=== PATIENT | male | born 1975 | race African-American/Black ===

== ENCOUNTER 2019-04-16 20:49 | Inpatient (IN) | payer OTHER, MEDICAID ==
[~2019-04-16] VITALS: Ht 175.3 cm; Wt 118.5 kg
--- NOTE | 2019-04-16 21:18 | NUR ---
UPON ENTERING THE ROOM PT OXYGEN SATURATION IS AT 88% RA EVEN AFTER REQUESTING PT TO TAKE SEVERAL DEEP BREATHES. PT DOES NOT HAVE INCREASED WOB HOEVER O2 SAT IS STILL LOW. PT PLACED ON 4L NC AT THIS TIME. AWAITING MSE
--- NOTE | 2019-04-16 21:33 | NUR ---
SING AT BEDSIDE PT CONNECTED TO 3 DIFFERENT PULSE OX MACHINES. IN ROOM MONITOR SAYS 86% EVEN ON 4 L NC. TWO PORTABLE MONITORS SAY DIFFERENT THINGS. ONE STATES 87% AND OTHER STATES 93%. ON 4L NC. SING AWARE. AWAITING NEW ORDERS AT THIS TIME
--- NOTE | 2019-04-16 21:38 | NUR ---
SING AWARE OF O2 SATURATION. MD STATES TO LEAVE PT ON 4L NC AND WATCH HIM. PT HAS NO S/SX OF SOB OR RESP DISTRESS. PT SITTING UP AWAKE ALERT. RESP E/U. PT LOOKING AND WATCHING TV. CAREGIVER AT BEDSIDDE. WILL CONTINUE TO MONITOR.
--- NOTE | 2019-04-16 21:49 | NUR ---
CALLED X RAY FOR STAT CHEST X RAY. X RAY NOW AT BEDSIDE
--- NOTE | 2019-04-16 21:51 | NUR ---
PT PRESENTS TO ED WITH CAREGIVER FOR C/O AND EPISODE OF BECOMING DIAPHOREC AND HAVING CHEST PAIN EARLIER TODAY. PER CAREGIVER PT BECAME VERY SWEATY AND GRABBED HIS CHEST. PT IS DEVELOPMENTALLY DELAYED WELL DEF SO CAREGIVER AT BEDSIDE FOR INTERPRETATION. PT HAS E/U CHEST RISE. PT IS CALM AND COOPERATIVE. PT STATES "MY CHEST DOESNT HURT WHEN I BREATHE BUT IT FEELS FUNNY" PER CAREGIVER. PT IS NO LONGER DIAPHORETIC. PT SKIN WNL. PT CONNECTED TO FULL CM AND PULSE OX MONIOTRS. MD GEORGE HAS ALREADY PERFORMED MSE. BED IN LOWEST POSITION. PT CONNECTED TO O2. SIDE RAILS UP. CALL LIGHT WITHIN REACH. CAREGIVER AT BEDSIDE. NAD AT THIS TIME. AWAITING TEST RESULTS FOR FURTHER INFORMATION
--- NOTE | 2019-04-16 21:52 | NUR ---
REDNESS NOTED TO BL EYES. PER CAREGIVER THAT IS NORMAL FOR PT.
--- NOTE | 2019-04-16 22:05 | NUR ---
PT ABLE TO SHOW ME FRAN ON PHONE FOR SIGN LANGUAGE INTERPRETATION. PT ABLE TO ANSWER YES AND NO QUESTIONS WITH HEAD MOTION. PER CONTROL OPERATOR FLOW COAT PT WAS ABLE TO EXPRESS NEEDS EARLIER TODAY PT ALSO WENT TO LIGHT WORK AT THE HOME HE LIVES IN WITH NO PROBLEMS. CAREGIVER STATES HIS NEW PCP HAS BEEN CHANGING HIS BP MEDS AROUND A LOT AND INCREASING DOSES AND HAS PT ON MULTIPLE DIFFERENT MEDICATONS FOR BP. PT ABLE TO AMBULATE TO RESTROOM WITH STEADY GAIT FOR URINE SAMPLE. LUNG SOUNDS CLEAR IN ALL LIRA. NAD AT THIS TIME
[2019-04-16 22:20] LABS: CALCIUM 8.6 mg/dL (8.5-10.1); CARBON DIOXIDE 37.5 mmol/L (21-32); CHLORIDE SERUM 102 mmol/L (98-107); CREATININE SERUM 0.9 mg/dL (0.7-1.3); GFR1 > 60 mL/min; GLUCOSE SERUM 139 mg/dL (74-106); POTASSIUM SERUM 3.7 mmol/L (3.5-5.1); SODIUM SERUM 144 mmol/L (136-145)
[2019-04-16 22:25] LABS: ALKALINE PHOSPHATASE 73 U/L (46-116); ALT/SGPT 17 U/L (16-63); AST/SGOT 16 U/L (15-37); BILIRUBIN TOTAL 0.37 mg/dL (0.20-1.00); MAGNESIUM 2.2 mg/dL (1.8-2.4); TOTAL PROTEIN, SERUM 7.8 g/dL (6.4-8.2)
[2019-04-16 22:28] LABS: ALBUMIN 3.2 g/dL (3.4-5.0)
[2019-04-16 22:33] LABS: T3 TOTAL 1.01 ng/mL
[2019-04-16 22:42] LABS: AMPHETAMINE QUAL UR NONE DETECTED (See below)
[2019-04-16 22:44] LABS: FREE T4 0.77 ng/dL (0.76-1.46); FREE THYROXINE INDEX 2.2 ug/dL (1.4-4.5); T4(THYROXINE) 5.9 ug/dL (4.7-13.3)
--- NOTE | 2019-04-16 22:54 | NUR ---
SING AWARE OF PT CURRENT HR AND OXYGEN SATURATION. NO NEW ORDERS AT THIS TIME
[2019-04-16 23:00] LABS: BASOPHIL % 0.9 % (0-2)
[2019-04-16 23:02] LABS: PLATELET COUNT 90 x10^3mcL (130-400); RED CELL DISTRIBUTION WIDTH 22.2 % (11.5-14.5)
[2019-04-17] VITALS (17 sets, daily range): BP systolic 99–157; BP diastolic 42–124
--- NOTE | 2019-04-17 00:40 | NUR ---
MD GEORGE AND RT AT BEDSIDE FOR INTUBATION
--- NOTE | 2019-04-17 00:45 | NUR ---
4MG VERSED GIVEN R HAND IV PUSH FOR INTUBATION
--- NOTE | 2019-04-17 00:50 | NUR ---
15MG ETOMIDATE GIVEN IVP IN R HAND FOR RSI
--- NOTE | 2019-04-17 00:52 | NUR ---
BL SOFT WRIST RESTRAINTS APPLIED TO PT WRISTS FOR INTUBATION
--- NOTE | 2019-04-17 00:56 | NUR ---
X RAY AT BEDSIDE FOR INTUBATION CONFIRMATION
--- NOTE | 2019-04-17 01:08 | NUR ---
MD GEORGE CONFIRMED INTUBATION TUBE PLACEMENT
[2019-04-17] MEDS ORDERED: KAPSPARGO SPRI200 MG PO (02:08)
[2019-04-17] MEDS ORDERED: NOR10 PO (02:08)
[2019-04-17] MEDS ORDERED: BENAZEPRIL HYDR40 M1 PO (02:09)
[2019-04-17] MEDS ORDERED: CHLORTHALIDONE25 MG PO (02:09)
[2019-04-17] MEDS ORDERED: BENZTROPINE MESY1 MG PO (02:10)
[2019-04-17] MEDS ORDERED: HALOPERIDOL10 MG IM (02:10)
--- NOTE | 2019-04-17 02:10 | NUR ---
PATIENT INTUBATED @0051 BY WITH NUCLEAR OPERATIONS SPECIALIST, JACEK AND KAMARI. TWO ATTEMPTS MADE TO INTUBATE, SECOND ATTEMPT SUCCESSFUL WITH GOOD COLOR CHANGE FROM CAPNOMETER AND BILATERAL BREATH SOUNDS HEARD, MORE AUDIBLE ON THE RIGHT SIDE. CUFF INFLATED TO 30 CM H2O. ET TUBE SIZE 8.0 SECURED WITH AN ANCHORFAST AT 26 CM AT THE LIP. REVIEWED XRAY AND CONFIRMED GOOD TUBE PLACEMENT. PATIENT PLACED ONTO VENTILATOR @0107 WITH SETTINGS AC/VC 550 RATE 18 PEEP 5 FIO2 100%.
[2019-04-17] MEDS ORDERED: DIVALPROEX SOD500 M2 PO (02:11)
[2019-04-17] MEDS ORDERED: SEROQUEL300 MG PO (02:11)
--- NOTE | 2019-04-17 02:11 | NUR ---
DECREASED FIO2 FROM 100% TO 60% POST ABG RESULTS AND PER DR. BLACKWELL.
[2019-04-17] MEDS ORDERED: SEROQUEL100 MG PO (02:12)
--- NOTE | 2019-04-17 02:17 | NUR ---
MD CARR CONFIRMED OG TUBE PLACEMENT AT THIS TIME
--- NOTE | 2019-04-17 02:18 | NUR ---
PT PROPOFOL INCREASED TO 15MCG/KL/MIN AT 9.9ML /HR FOR PT TRYING TO SIT UP AND PULL ON ARMS WHILE SUCTIONING PT.
--- NOTE | 2019-04-17 02:34 | NUR ---
REPORT GIVEN TO DANIEL SWIFT. ALL QUESTIONS AND CONCERNS ADRESSED AT THIS TIME
--- NOTE | 2019-04-17 02:50 | NUR ---
TRANSFERED PATIENT FROM ER TO ICU 4 ON VENTILATOR WITH NO INCIDENT.
--- NOTE | 2019-04-17 02:55 | NUR ---
PT TRANSFERRED FROM ER VIA GURNEY ACCOMPANIED BY RN AND EMT. PT TRANSFERRED TO ICU BED WITH FULL ASSIST. PT INTUBATED AND SEDATED ON PROPOFOL 18 MCG/KG/MIN WITH RSS 4. PERRLA NOTED. 8.0 ETT INTACT AND SECURED, 26 CM @ LL. TRACHEA MIDLINE. NO JVD NOTED. OGT INTACT AND SECURED. EENT FREE OF DISCHARGE. PLACED ON FULL CM, VITAL SIGNS STABLE. PT AFEBRILE. ETT TO VENT: AC MODE RATE 18, TV 550, PEEP 5, FIO2 100%. CHEST RISE EQUAL AND SYMMETRICAL. LUNG SOUNDS COARSE CRACKLES SAM. VAP CARE PROVIDED. ABD DISTENDED AND SOFT TO TOUCH. BOWEL SOUNDS HYPOACTIVE. NO BM NOTED. F/C INTACT AND DRAINING VIA GRAVITY YELLOW URINE. NO SCROTAL EDEMA. NO PENILE DISCHARGE NOTED. PULSES PALPABLE X4. CAP REFILL < 3 SECS. NO EDEMA NOTED. GEN WEAKNESS NOTED. TURNED AND REPOSITIONED Q2H FOR PRESSURE RELIEF. BUE SOFT WRIST RESTRAINTS IN PLACE FOR PT SAFETY. ALL NEEDS MET AT THIS TIME. WILL CONTINUE TO MONITOR.
--- NOTE | 2019-04-17 03:10 | NUR ---
PT RESTLESS, SEEN ATTEMPTING TO SIT UP AND PULL ON TUBE, PROPOFOL TITRATED TO 20 MCG/KG/MIN.
[2019-04-17 03:23] LABS: UA SPECIFIC GRAVITY 1.025 (1.005-1.035); microscopic required? YES; urine erythrocyte NEGATIVE (NEGATIVE)
--- NOTE | 2019-04-17 03:30 | NUR ---
PT AWAKE AND RESTLESS, PROPOFOL TITRATED TO 22 MCG/KG/MIN.
--- NOTE | 2019-04-17 04:00 | NUR ---
PT AWAKE AND RESTLESS, ATTEMPTING TO PULL OUT TUBE, PROPOFOL TITRATED TO 25 MCG/KG/MIN.
[2019-04-17 04:57] LABS: BASOPHIL % 1.9 % (0-2); PLATELET COUNT 185 x10^3mcL (130-400)
[2019-04-17 05:03] LABS: RED CELL DISTRIBUTION WIDTH 22.2 % (11.5-14.5)
--- NOTE | 2019-04-17 05:57 | NUR ---
REPORTED CRITICAL LAB VALUE HGB/HCT TO DR BLACKWELL, STATES WILL ORDER FLUIDS.
--- NOTE | 2019-04-17 06:10 | NUR ---
LAB AT BEDSIDE FOR REPEAT LACTIC ACID.
--- NOTE | 2019-04-17 06:19 | NUR ---
DR OTEROED AT BEDSIDE, UPDATED ON STATUS, ALL QUESTIONS AND CONCERNS ADDRESSED. NO NEW ORDERS GIVEN.
[2019-04-17 07:15] LABS: CALCIUM 8.5 mg/dL (8.5-10.1); CARBON DIOXIDE 34.3 mmol/L (21-32); CHLORIDE SERUM 99 mmol/L (98-107); GFR1 > 60 mL/min; GLUCOSE SERUM 161 mg/dL (74-106); MAGNESIUM 1.8 mg/dL (1.8-2.4); PHOSPHOROUS 1.8 mg/dL (2.5-4.9); POTASSIUM SERUM 3.5 mmol/L (3.5-5.1); SODIUM SERUM 139 mmol/L (136-145)
--- NOTE | 2019-04-17 07:30 | NUR ---
RC'D PT RESTING IN BED INTUBATED AND SEDATED ON PROP @25MCG/KG/MIN. PT RESPONDS TO PAINFUL STIMULI. PUPILS 4MM AND SLUGGISH BILAT. NO FACIAL DROOP. 8 ETT INTACT AND SECURED, 26CM LL. OGT INTACT AND SECURED IN PLACE. EENT FREE OF DISCHARGE. DEAF TO RIGHT EAR, HEARING AID TO LEFT EAR. ETT TO VENT, AC MODE; TV 550, FIO2 60%, RATE 18, PEEP 5. RESP E/U. CRACKLES NOTED BILAT. SPO2 97%, NO RESP DISTRESS NOTED. ST ON SOCIAL WORK FACULTY MEMBER, H1 112. S1S2 AUSC. NO S/S OF CP. WEAK PALP PULSES TO BUE/BLE, EDEMA NTOED TO BLE. CAP REFILL <3. SKIN WARM TO TOUCH AND CONSISTENT WITH ETHNICITY. NS @100. GENERALIZED WEAKNESS. REPOSITION Q2H FOR PRESSURE REDUCTION. BUE SOFT RESTRAINTS IN PLACE, CAP REFILL <3 TO ALL DIGITS. PT NPO AT THIS TIME. ABDOMEN DISTENDED AND FIRM. HYPOACTIVE BS. NO BM NOTED. F/C WITH YELLOW URINE DRAINING TO GRAVITY, SECURED IN PLACE. NO PENILE EDEMA NOTED. SKIN W/D/I. IV TO RH AND LH, INTACT AND PATENT. BED IN LOW POSITION. SCDS IN PLACE. WILL CONT TO MONITOR
[2019-04-17 08:37] LABS: IRON 41 ug/dL (65-170); TOTAL IRON BINDING CAPACITY 395 ug/dL (250-450)
--- NOTE | 2019-04-17 09:17 | NUR ---
DR AKINS AND MED TEAM AND PRIMARY RN PRESENT AT BEDSIDE DISCUSSING POC WITH PTS FAMILY AND CAREGIVEN. UPDATED ON PTS CURRENT STATUS. ALL QUESTIONS AND CONCERNS ADDRESSED. NO NEW ORDERS AT THIS TIME
--- NOTE | 2019-04-17 18:25 | NUR ---
PT CLEANED AND REPOSITIONED. ORAL CARE PROVIDED. KUHN CARE PROVIDED. WILL CONT TO MONITOR
--- NOTE | 2019-04-17 19:15 | NUR ---
RECIEVED REPORT FROM JENIFFER MCCAULEY. NURSING UPDATES. POC DISCUSSED. SEE SHIFT ASSESSMENT FOR ASSESSMENT.
--- NOTE | 2019-04-17 19:28 | NUR ---
PT ENDORSED TO REAL ESTATE CONSULTANT RN. ALL QUESTIONS AND CONCERNS ADDRESSED
--- NOTE | 2019-04-17 22:03 | NUR ---
NO ACUTE CHANGES. WILL CONT TO MONITOR.
--- NOTE | 2019-04-17 23:17 | NUR ---
TITRATED PROPOFOL FROM 40MCG/KG/MIN TO 35MCG/KG/MIN PER PT TOLERATING WELL AND NO S/S OF DISTRESS OR AGITATION. BP WNL. WILL CONT TO MONITOR.
[2019-04-18] VITALS (17 sets, daily range): BP systolic 91–147; BP diastolic 48–110
--- NOTE | 2019-04-18 | NUR ---
ADJUSTED TF FROM 20ML/HR TO 30ML/HR TO TRY AND ACHIEVE GOAL. NO RESIDUAL NOTED. WILL CONT TO MONITOR.
--- NOTE | 2019-04-18 01:18 | NUR ---
NO ACUTE CHANGES. WILL CONT TO MONITOR.
--- NOTE | 2019-04-18 01:46 | NUR ---
MRSA AND INFLUENZE CULTURES SENT TO LAB.
--- NOTE | 2019-04-18 02:32 | NUR ---
TITRATED PROPOFOL FROM 35MCG/KG/MIN TO 30MCG/KG/MIN PER PT TOLERATING WELL AND NO S/S OF DISTRESS OR AGITATION. BP WNL. WILL CONT TO MONITOR.
[2019-04-18 06:37] LABS: CALCIUM 8.4 mg/dL (8.5-10.1); CARBON DIOXIDE 30.2 mmol/L (21-32); CHLORIDE SERUM 105 mmol/L (98-107); GFR1 > 60 mL/min; GLUCOSE SERUM 112 mg/dL (74-106); MAGNESIUM 1.8 mg/dL (1.8-2.4); SODIUM SERUM 144 mmol/L (136-145)
--- NOTE | 2019-04-18 07:45 | NUR ---
RC'D PT RESTING IN BED INTUBATED AND SEDATED ON PROP 40MCG/KG/MIN. PT RESPONDS TO PAINFUL STIMULI. PUPILS 4MM AND SLUGGISH BILAT. NO FACIAL DROOP NOTED. 8 ETT INTACT AND SECURED, 26CM LL. OGT INTACT AND SECURED. ETT TO VENT, PCV MODE- FIO2 60%, RATE 14, PEEP 12, PRESSURE 18. RESP E/U. CRACKLES NOTED. SPO2 93%, NO RESP DISTRESS NOTED. ST ON PARTS DATA WRITER. S1S2 AUSC. NO S/S OF CP. WEAK PALP PULSES TO BUE/BLE, EDEMA NOTED TO BLE. CAP REFILL <3. SKIN WARM TO TOUCH AND CONSISTENT WITH ETHNICITY. NS@100. GENERALIZED WEAKNESS. PT REPOSITIONED Q2H FOR PRESSURE REDUCTION. ABDOMEN DISTENDED AND FIRM. ACTIVE BS. NO RESIDUAL NOTED. F/C WITH YELLOW URINE DRAINING TO GRAVITY, SECURED IN PLACE. SKIN W/D/I. VITAL AF @40 WITH 50 FWF Q6H. BED IN LOW POSITION. WILL CONT TO MONITOR
[2019-04-18 09:07] LABS: BASOPHIL % 0.2 % (0-2); PLATELET COUNT 166 x10^3mcL (130-400)
[2019-04-18 09:24] LABS: RED CELL DISTRIBUTION WIDTH 23.3 % (11.5-14.5)
--- NOTE | 2019-04-18 14:57 | NUR ---
Initial Nutrition Assessment: IC04/A MIKHAIL BASSETT IA HR Dx: Respiratory failure, dehydration PMHx: 43 year old male with a PMH of HTN, mental retardation, psychosis, deafness who comes into the ED for CC palpitation and SOB. PSHx: none Labs: K 3.0L, BG 112H, ALB 3.3L, CA 8.4L, P 2.0L Meds: Colace, Lopressor, Pepcid, Tylenol, valproic acid, zosyn, heparin Diet: (OGT) Vital AF 1.2 @ 10 ml/hr, goal 40 ml/hr, FWF 50 ml Q6H PO intake since admission: NPO Ht: 175.26 cm (69") Wt: 110 kg (242#) BMI: 35.8 kg/m2 Bed scale: 110 kg IBW: 160# (73 kg) %IBW: 151 UBW: unbale to access Age: 43/M Food Allergies: NKFA Skin: intact Parviz: 14 Edema: BUE/ BLE edema GI: Last BM: none Per H&P, Pt is a 43 year old male with a PMH of HTN, mental retardation, psychosis, deafness who comes into the ED for CC palpitation and SOB. RD Note (04/18): Patient is intubated and sedated. Per RN, patient is tolerating tube feedings with <15 ml residuals. Patient does not have any N/V/D/C at this time. Problem with: N/V/D/C: Problems with: Chewing: Swallowing: Current appetite: unbale to access Recent wt change: unbale to access %wt change: n/a Vitamin/Supplement use: unbale to access Special diet at home: unbale to access Physical activity: unbale to access Nutrition education given: not possible at this time Food-drug interactions: none Education given: n/a Estimated Nutritional Needs Based on adjusted body weight (82 kg) Energy: 5950-3964 vs 2260 kcal/day (30-35 kcal/kg vs PSU for catabolic stress) Protein: 98-115 g/day (1.2-1.4 g/kg for catabolic stress, on vent) Fluid: 1500-8258 mL/day (1 mL/kcal) Nutrition Diagnosis: 1. Inadequate enteral nutrition infusion related to low TF rate as evidenced by current rate not meeting estimated calorie and protein needs. Intervention 1. Recommend Vital AF 1.2 @ 65 ml/hr. This will provide 1870 kcal and 117g protein. This will meet > 75% of estimated calorie and 100% estimated protein needs of the patient. Paged Dr. Hendrickson Sayed, waiting for call back. Monitor/Evaluate Goal: PO intake at least 75% of estimated needs Monitor: PO intake, Labs, GI function F/U in 2-3 days as high risk 04/20-
--- NOTE | 2019-04-18 15:05 | NUR ---
PUBLICATIONS MANAGER PRESENT AT BEDSIDE
--- NOTE | 2019-04-18 18:16 | NUR ---
PT RESTING IN BED WITH CAREGIVER PRESENT AT BEDSIDE. RESP E/U. INTUBATED AND SEDATED
--- NOTE | 2019-04-18 18:24 | NUR ---
KUHN CARE AND ORAL CARE PROVIDED. ANDREA CHANGED.
--- NOTE | 2019-04-18 19:30 | NUR ---
PT ENDORSED TO NUTRITIONALIST RN. ALL QUESTIONS AND CONCERNS ADDRESSED
--- NOTE | 2019-04-18 19:44 | NUR ---
RECIEVED REPORT FROM JENIFFER MCCAULEY. NURSING UPDATES. POC DISCUSSED. SEE SHIFT ASSESSMENT FOR ASSESSMENT.
--- NOTE | 2019-04-18 20:00 | NUR ---
NOTIFIED PHARMACY OF SEROQUEL NOT IN PT BOX. PHARAMACY NOTIFED CHANGED TO A ONE TIME ORDER TO PULL FROM [facility]. LIANA SWIFT PULLED 300MG (3 100MG SEROQUEL TABS) FROM [facility]. ADM SEE (*SEE MAR*) 300MG NG TUBE.
--- NOTE | 2019-04-18 20:30 | NUR ---
PT W/ EPISODES OF EMESIS. RT REZA @ BEDSIDE. SUCTION APPLIED. ESTIMATED 50CC ESEMSIS OF LICEA/BROWN FOOD COLOR. O2 SAT 95%. BP WNL. ONLY S/S IS ABD PAIN. TITRATED VERSED FROM 1MG/HR TO 2MG/HR AFTER 15 MINS 4MG/HR. PT STILL AGITATED AND ATTEMPTING TO MOVE AND GET UP. TITRATED VERSED TO 6MG/HR W/ NO AVAIL PT STILL RESISTING. TITRATED VERSED TO 8MG/HR STILL W/ RESISTANCE AFTER 15MINS. TITRATED VERSED TO 10MG/HR Q15MIN PER PT AGITATION. PT FINALLY CALMED DOWN. TUBE FEEDING TITRATED OFF PER EMESIS WILL REASSESS.
--- NOTE | 2019-04-18 21:56 | NUR ---
TITRATED VERSED FROM 10MG/HR TO 8MG/HR PER PT TOLERATING NO S/S OF DISTRESS. WILL CONT TO MONITOR.
--- NOTE | 2019-04-18 22:29 | NUR ---
LAB NOTIFIED OF K-RIDER ORDER W/ NS ADDED POTASSIUM AND WAS WORRIED THAT NO REPEAT LAB DRAW WAS DONE AFTER KRIDER TODAY FOR k+ 3.0 04/[address] RICARDO. INSTRUCTION TO WAIT FOR NEW BNP LAB DRAW HOLD ON NS W/ POTASSIUM AND K-RIDER TILL LAB DRAW RESULTS.
--- NOTE | 2019-04-18 22:30 | NUR ---
TITRATED VERSED FROM 8MG/HR TO 6MG/HR PER PT TOLERATING NO S/S OF DISTRESS. WILL CONT TO MONITOR.
--- NOTE | 2019-04-18 23:07 | NUR ---
TITRATED VERSED FROM 6MG/HR TO 4MG/HR PER PT TOLERATING NO S/S OF DISTRESS. WILL CONT TO MONITOR.
--- NOTE | 2019-04-18 23:08 | NUR ---
TITRATED VERSED FROM 4MG/HR TO 2MG/HR PER PT TOLERATING NO S/S OF DISTRESS. AND PT BP CONSISTENTLY LOW. WILL CONT TO MONITOR.
[2019-04-19] VITALS (18 sets, daily range): BP systolic 97–154; BP diastolic 48–108
[2019-04-19 00:01] LABS: CALCIUM 7.7 mg/dL (8.5-10.1); CARBON DIOXIDE 30.4 mmol/L (21-32); CREATININE SERUM 1.6 mg/dL (0.7-1.3); POTASSIUM SERUM 3.7 mmol/L (3.5-5.1)
--- NOTE | 2019-04-19 02:06 | NUR ---
TITRATED FENT FROM 1MCG/KG/HR TO 0.5MCG/KG/HR PER PT TOLERATING. NO S/S OF PAIN OF RESP DISTRESS REKHA. WILL CONT TO MONITOR.
--- NOTE | 2019-04-19 04:30 | NUR ---
NO ACUTE CHANGES. CLEANED PT AND LINENS. RETITRATED ON TUBE FEEDING @ 40ML/HR NO RESIDUAL. WILL ENDORSE. NO S/S OF ASPIRATION OR EMESIS.
[2019-04-19 06:18] LABS: CALCIUM 7.7 mg/dL (8.5-10.1); CARBON DIOXIDE 32.1 mmol/L (21-32); CREATININE SERUM 1.4 mg/dL (0.7-1.3); MAGNESIUM 1.9 mg/dL (1.8-2.4); PHOSPHOROUS 3.8 mg/dL (2.5-4.9); POTASSIUM SERUM 3.2 mmol/L (3.5-5.1)
--- NOTE | 2019-04-19 06:28 | NUR ---
DR HANNON @ BEDSIDE. NURSING UPDATES POC DISCUSSED. NO NEW ORDERS.
[2019-04-19 06:36] LABS: BASOPHIL % 0.3 % (0-2); PLATELET COUNT 147 x10^3mcL (130-400)
--- NOTE | 2019-04-19 06:37 | NUR ---
DR HANNON MADE AWARE OF K+ 3.2. AWAITING ORDERS.
--- NOTE | 2019-04-19 07:10 | NUR ---
RECEIVED REPORT FROM HEIDY SWIFT. ALL QUESTIONS ANSWERED AND ADDRESSED.
--- NOTE | 2019-04-19 08:00 | NUR ---
VERSED TITRATED TO 1 MG/HR PER DR. MANCINI FOR CPAP TRIALS LATER TODAY.
[2019-04-19 08:08] LABS: RED CELL DISTRIBUTION WIDTH 23.3 % (11.5-14.5)
--- NOTE | 2019-04-19 08:10 | NUR ---
ROYA RT AT BEDSIDE. PEEP CHANGED TO 8 AT THIS TIME. PT O2 SAT OF 94%. NO S/S OF ACUTE DISTRESS. WILL CONT TO MONITOR.
--- NOTE | 2019-04-19 10:25 | NUR ---
RSS = 5. TITRATED VERSED TO 0.5 MG/HR TO ACHEIVE RSS OF 4.
--- NOTE | 2019-04-19 10:25 | NUR ---
DR. AKINS AND RESIDENTS AT BEDSIDE TO ASSESS PT. NURSING UPDATES. NO NEW ORDERS AT THIS TIME.
--- NOTE | 2019-04-19 10:31 | NUR ---
PATIENT ROUNDS WITH DR. AKINS AND LAITH. CHARGE NURSE AND PRIMARY NURSE AT BEDSIDE. UPDATES PROVIDED AND POC DISCUSSED. WILL CONTINUE TO MONITOR.
--- NOTE | 2019-04-19 11:43 | NUR ---
DULCOLAX SUPPOSITORY GIVEN AT THIS TIME.
--- NOTE | 2019-04-19 13:45 | NUR ---
PT BECAME MORE AWAKE AND RESTLESS MOVING IN BED. PT R HAND IV DISLODGED AND IS NO LONGER ACCESSIBLE AT THIS TIME. VERSED TITRATED TO 1 MG/HR.
--- NOTE | 2019-04-19 14:05 | NUR ---
NEW 24 PIV INSERTED TO R HAND WITH NO S/S OF INFILTRATIONS, 10 CC FLUSHED WELL.
--- NOTE | 2019-04-19 15:40 | NUR ---
PT HAD A LOOSE LIGHT BROWN/YELLOW BOWEL MOVEMENT. PT CLEANED, CHUCKS CHANGED, LINEN CHANGED, KUHN CARE COMPLETED, AND GOWN CHANGED. PT TOLERATED WELL WITH NO COMPLICATIONS.
--- NOTE | 2019-04-19 17:05 | NUR ---
PT HAD TWO LOOSE LIGHT BROWN/YELLOW BOWEL MOVEMENTS. PT BECAME VERY RESTLESS AND TRIED TO REMOVE RESTRAINTS AND PULL AT ETT TUBE. VERSED TITRATED TO 2 MG/HR. PT CLEANED, CHUCKS CHANGED, GOWN CHANGED.
--- NOTE | 2019-04-19 18:00 | NUR ---
PT HAD A MODERATE LOOSE LIGHTBROWN/YELLOW STOOL. PT CLEANED, CHUCKS CHANGED, AND LINEN CHANGED.
--- NOTE | 2019-04-19 18:42 | NUR ---
PT HAD A SMALL AMOUNT OF LOOSE LIGHT BROWN/YELLOW STOOL. PT CLEANED, CHUCKS CHANGED, GOWN CHANGED.
[2019-04-20] VITALS (19 sets, daily range): BP systolic 89–138; BP diastolic 54–98
[2019-04-20 05:11] LABS: BASOPHIL % 0.1 % (0-2); PLATELET COUNT 131 x10^3mcL (130-400)
[2019-04-20 05:16] LABS: CHLORIDE SERUM 109 mmol/L (98-107); CREATININE SERUM 1.2 mg/dL (0.7-1.3); GFR1 > 60 mL/min; GLUCOSE SERUM 87 mg/dL (74-106); MAGNESIUM 2.3 mg/dL (1.8-2.4); PHOSPHOROUS 3.3 mg/dL (2.5-4.9); POTASSIUM SERUM 3.1 mmol/L (3.5-5.1); SODIUM SERUM 147 mmol/L (136-145)
--- NOTE | 2019-04-20 07:10 | NUR ---
REPORT RECEIVED FROM FRANCE SWIFT. ALL CARES ASSUMED AT THIS TIME. WILL CARRY OUT ORDERS AND CARES FOR THE SHIFT.
--- NOTE | 2019-04-20 09:41 | NUR ---
MOTHER OF PATIENT CALLED AT THIS TIME. UPDATES PROVIDED, QUESTIONS ANSWERED. SAID SHE WILL BE IN TO VISIT EARLY THIS AFTERNOON.
--- NOTE | 2019-04-20 10:19 | NUR ---
SPOKE WITH ENRIQUE FROM PT'S BOARD AND CARE TO VERIFY HALDOL DOSAGE PER DR. HANNON. PER ENRIQUE PT TAKES HALDOL 50MG PO ONCE A MONTH AND LAST RECIEVED A DOSAGE ON 04/08/19, DR. HANNON AND PRIMARY RN MADE AWARE.
--- NOTE | 2019-04-20 11:15 | NUR ---
DR. AKINS, DR. HANNON, BEDSIDE RN, AND REFRIGERATOR CABINETMAKER AT BEDSIDE FOR ROUNDS. UPDATES PROVIDED, QUESTIONS ANSWERED.
--- NOTE | 2019-04-20 11:16 | NUR ---
PT RESTING COMFORTABLY IN BED WITH EYES CLOSED.
--- NOTE | 2019-04-20 11:50 | NUR ---
DR. MANCINI AT BEDSIDE. UPDATES PROVIDED, QUESTIONS ANSWERED. PER DR. MANCINI, SHE WOULD LIKE TO WEAN SEDATION DOWN TO TRY PT ON CPAP ON VENT. FENTANYL TITRATED DOWN TO 0.5 MCG/KG/HR & VERSED TITRATED DOWN TO 0.5 MG/HR. WILL CONTINUE TO MONITOR.
--- NOTE | 2019-04-20 12:19 | NUR ---
PT RESTING IN BED WITH EYES CLOSED, NO S/S DISTRESS.
--- NOTE | 2019-04-20 12:30 | NUR ---
EMILIE RT TRIED PLACING PT ON CPAP /, BUT PT DESATURATED TO MID 80'S WITH SHALLOW RESPIRATIONS. PT PROMPTLY PLACED BACK ON A/C PCV.
--- NOTE | 2019-04-20 12:37 | NUR ---
PT GIVEN 4MG PRN ZOFRAN FOR GAGGING AND ASSOCIATED AGITATION. TUBE FEEDING PAUSED AT THIS TIME. FENTANYL INCREASED TO 1 MCG/KG/MIN AND VERSED INCREASED TO 3 MG/HR. PT STILL AGITATED. RN AND RT REMAIN AT BEDSIDE.
--- NOTE | 2019-04-20 12:45 | NUR ---
SEDATION INCREASE EFFECTIVE. PT RESTING IN BED WITH EYES CLOSED, NO S/S DISTRESS NOTED. WILL CONTINUE TO MONITOR. BP 119/80 (92), SPO2 94%, RR 14, HR 93.
--- NOTE | 2019-04-20 12:50 | NUR ---
DR. MANCINI CALLED, SUGGESTED STARTING THE PT ON PRECEDEX TOMORROW TO SEE IF THAT WILL BE CONDUCIVE FOR WEANING AND PREVENTING AGITATION. SHE SAID TO WAIT TO ENTER THE ORDER. WILL ENDORSE.
--- NOTE | 2019-04-20 15:28 | NUR ---
NO SIGNS OF NAUSEA AT THIS TIME, TUBE FEEDING RESTARTED AT 10 ML/HR. WILL CONTINUE TO ASSESS.
--- NOTE | 2019-04-20 18:27 | NUR ---
COMPLETE LINEN CHANGE, GOWN CHANGE, NEW CHUX, KUHN CARE, BED BATH, PILO WIPES PROVIDED. PT HAD 1 MOD AMT LIQUID BROWN STOOL AT THIS TIME.
--- NOTE | 2019-04-20 19:30 | NUR ---
RECEIVED PATIENT ON VENT SUPPORT, ETT AND OGT INPLACE, FENTANYL AND VERSED DRIP INFUSING, FEEDING WELL TOLERATED, WITH BILATERAL WRIST RRESTRAINTS, GOOD CIRCULATION MAINTAINED. FAMILY AT BEDSIDE, MOTHER WAS UPDATED OP PATIENT'S STATUS, CONCERNS WERE ADDRESSED, BED RIVET BUCKER ATTACHED TO BED.
--- NOTE | 2019-04-20 22:12 | NUR ---
CARE OF PATIENT ASSUMED AT 2129, REPORT RECEIVED AND ASSESSMET REVIEWED AND AGREED WITH. PT CURRENTLY SEDATED AT VERSED 2MG/HOUR AND FENTYAL 0.5MCG/KG/HR. TUBE FEEDING @ 4O ML/HR.
[2019-04-21] VITALS (18 sets, daily range): BP systolic 96–143; BP diastolic 49–98
--- NOTE | 2019-04-21 03:31 | NUR ---
DR. BLACKWELL CONSULTED FOR INCREASED SWELLING TO PATIENTS LIPS. MD CAME TO BEDSIDE AND WROTE ORDERS FOR STEROIDS AND BENDRYL IV
[2019-04-21 06:22] LABS: BASOPHIL % 0.5 % (0-2); PLATELET COUNT 187 x10^3mcL (130-400)
[2019-04-21 06:53] LABS: CALCIUM 8.4 mg/dL (8.5-10.1); CARBON DIOXIDE 28.9 mmol/L (21-32); CREATININE SERUM 1.4 mg/dL (0.7-1.3); MAGNESIUM 2.2 mg/dL (1.8-2.4); PHOSPHOROUS 4.8 mg/dL (2.5-4.9); POTASSIUM SERUM 3.7 mmol/L (3.5-5.1)
--- NOTE | 2019-04-21 07:19 | NUR ---
VENT SETTINGS CHANGED TO FIO2 OF 50% FROM 30% AND PEEP 8 FROM PEEP 5. PT SPO2 WAS TRENDING IN MID 80'S, NOW LOW 90'S. WILL CONTINUE TO MONITOR.
[2019-04-21 07:35] LABS: RED CELL DISTRIBUTION WIDTH 23.3 % (11.5-14.5)
--- NOTE | 2019-04-21 08:02 | NUR ---
INCREASE PT FIO2 FROM 30% TO 40% DUE TO PT DESATURATION, PT SPO2 CURRENTLY IS 93%.
--- NOTE | 2019-04-21 08:56 | NUR ---
DR. MANCINI AT BEDSIDE. UPDATES PROVIDED, QUESTIONS ANSWERED. TO ADDRESS LIP SWELLING, SHE SUGGESTED TO D/C KIAH, START DECADRON 4MG IVP Q8 & CEFEPIME IV 1G Q12. WILL CARRY OUT ORDERS AND CONTINUE TO MONITOR.
--- NOTE | 2019-04-21 10:10 | NUR ---
Follow-up Nutrition Assessment Dx: Respiratory failure, Dehydration Labs: (04/21) BG 210H, Cr 1.4H, Ca 8.4L, H/H 17.3/57H Meds: Cogentin, Colace, Lasix, Lopressor, Norvasc, Seroquel, Sublimaze, Valproic acid, Versed, Zofran TF: Vital AF 1.2 at goal rate 40 mL/Hr with 100 ml Q4 TF Intake: (04/20) 970 mL (04/19) 1076 mL; meeting >75% estimated needs Weights: 118 kg today, measured on bedscale. I/Os: (04/21) 1429/1501 -81 (04/20) 3952/2750 +1203 (04/19) 3714/2550 +1164. Positive fluid balance noted; weight fluctuations are expected. Pt receiving diuretics for + fluid. Skin: Intact, no wounds Parviz: 14 Edema: +1 toe BUE GI: acute bowel sounds x 4 Q per RN shift reassessment notes Last BM: x [address] Note (04/21/19): Pt. continues to be intubated and sedated today. Tolerating Vital AF 1.2 @ current rate 40 mL/hr which is at goal. Minimal GRV. Had some episodes of gagging and vomiting the previous day, and TF was paused for a short time per RN. TF was reinitiated to goal rate and pt. is tolerating well today with no GI distress. Estimated Nutritional Needs; Based on AJBW 82 kg vs Ve 5.65, T: 36.9 C, and CBW 118 kg Energy: 9439-2402 vs. 2100 kcal/day (30-35 kcal/kg vs PSU for catabolic stress) Protein: 98-115 g/day (1.2-1.4 g/kg AJBW for catabolic stress, on ventilator support) Fluid: Per doctor's orders d/t + fluid balance. Nutrition Diagnosis: 1. Inadequate EN infusion r/t low TF rate AEB current rate not meeting estimated calorie and protein needs (improved, ongoing). Intervention: 1. Continue current TF regimen of Vital AF 1.2 @ 40 mL/Hr as, pt. has possible history of aspiration and multiple episodes of desaturation yesterday per provider progress notes. When medically able, consider increase of TF regimen to 65mL/Hr to provide 1870 kcal and 117 g protein to meet >75% estimated kcal and protein needs. Advance TF 10 mL Q4H if the recommendation for regimen increase is initiated. 2. Changes to FWF per doctor's orders to prevent fluid overload. Monitor/Evaluate: Goal: Have pt meet at least 75% of estimated needs (not met) New goal: Have pt meet at least 60% of estimated needs Monitor: TF intake/tolerance, Labs, GI function F/U in 2-3 days as high risk (04/23-04/24)
--- NOTE | 2019-04-21 10:40 | NUR ---
MOTHER OF PT CALLED AT THIS TIME. QUESTIONS ANSWERED, UPDATES PROVIDED. SHE STATED SHE WILL BE HERE LATER TO VISIT. WILL CONTINUE TO MONITOR.
--- NOTE | 2019-04-21 12:57 | NUR ---
PT OBSERVED GAGGING, MOD AMT ORAL SECRETIONS SUCTIONED SEVERAL TIMES. WILL MEDICATE WITH PRN ZOFRAN.
--- NOTE | 2019-04-21 13:10 | NUR ---
NO S/S NAUSEA NOTED. ZOFRAN SEEMS EFFECTIVE.
--- NOTE | 2019-04-21 13:17 | NUR ---
PT RESTING QUIETLY IN BED, NO S/S DISTRESS NOTED.
--- NOTE | 2019-04-21 13:30 | NUR ---
1 LIQUID BROWN STOOL AT THIS TIME, MOD AMT. HYGIENE CARE, ETHAN READ PROVIDED.
[2019-04-21 13:34] LABS: rbc morphology (normal/abnorm) ABNORMAL (NORMAL)
--- NOTE | 2019-04-21 16:20 | NUR ---
1 MOD AMT BROWN LIQUID STOOL AT THIS TIME. HYGIENE CARE, NEW CHUX, NEW GLIDE SHEET, KUHN CARE, NEW BLANKET PROVIDED.
--- NOTE | 2019-04-21 17:36 | NUR ---
DR. HANNON MADE AWARE THAT DR. MANCINI SUGGESTED CONSULTING DR. MAGAÑA.
--- NOTE | 2019-04-21 20:00 | NUR ---
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 KUHN VIA GRAVITY DRAINING YELLOW URINE, EDEMA NOTED TO GENERALIZED BODY, NO DISTRESS NOTED, WILL KEEP TO MONITOR.
--- NOTE | 2019-04-21 22:34 | NUR ---
ALL DUE MEDS GIVEN, PT HAD SMALL LOOSE BM, GOOD ROBER-CARE GIVEN, TOTAL BED BATH GIVEN, NO DISTRESS NOTED, WILL KEEP TO MONITOR.
[2019-04-22] VITALS (19 sets, daily range): BP systolic 131–169; BP diastolic 76–106; Ht 175.3 cm; Wt 118.5 kg
--- NOTE | 2019-04-22 | NUR ---
MIDNIGHT ASSESSMENT DONE, NO SIGNIFICANT CHNAGES. SAM WRISTS STILL WITH SOFT REATRAINTS. SKIN INTACT UNDER RESTRAINTS. TF WITH VITAL AF 1.2 @ 40 ML/HR, FWF 100 ML Q4HRS. IVF INFUSING WELL.
--- NOTE | 2019-04-22 00:15 | NUR ---
DR MAGAÑA IS HERE, UPDATES GIVEN, NEW ORDER RECEIVED FOR DC VANCOMYCIN, ORDER CARRIED OUT.
--- NOTE | 2019-04-22 03:34 | NUR ---
DR BLACKWELL MADE AWARE PT HAD RHYTHM WITH A-FLUTTER EARLIER, NO NEW ORDER RECEIVE AT THIS TIME.
[2019-04-22 05:41] LABS: PLATELET COUNT 145 x10^3mcL (130-400)
[2019-04-22 05:56] LABS: CALCIUM 8.5 mg/dL (8.5-10.1); CHLORIDE SERUM 104 mmol/L (98-107); CREATININE SERUM 1.1 mg/dL (0.7-1.3); GFR1 > 60 mL/min; GLUCOSE SERUM 125 mg/dL (74-106); MAGNESIUM 2.1 mg/dL (1.8-2.4); PHOSPHOROUS 1.9 mg/dL (2.5-4.9); POTASSIUM SERUM 3.5 mmol/L (3.5-5.1); SODIUM SERUM 142 mmol/L (136-145)
--- NOTE | 2019-04-22 06:15 | NUR ---
DR OTEROED AT BEDSIDE, ALL UPDATES GIVEN.
--- NOTE | 2019-04-22 06:39 | NUR ---
NO SIGNIFICANT CHANGES FOR THE WHOLE SHIFT, PT STILL INTUBATED ON VENT WITH AC MODE, TD:550 ML/HR, FIO2:40%, PEEP:6, RATE:16, ON VERSED 1MG/HR AND FENTANYL 0.5 MCG/KG/HR, ON ENTRY LEVEL MECHANICAL ENGINEER WITH SB, IVF INFUSING WELL WITH 1/2 NS @ 100 ML/HR, TOLERATING WELL WITH TF VITAL AF 1.2 @ 40 ML/HR, NO RESIDUAL NOTED, ASP PRECAUTION IN PLACE, TOTAL BED BATH GIVEN, PT HAD X 2 LOOSE STOOL THROUGHOUT THE SHIFT, RE-POSITIONED PT Q2HRS, NO SKIN BREAKDOWN, SAM WRISTS WITH SOFT RESTRAINTS, NO SKIN BREAKDOWN, NO DISTRESS NOTED, WILL KEEP TO MONITOR.
[2019-04-22 06:42] LABS: BASOPHIL % 0 % (0-2); RED CELL DISTRIBUTION WIDTH 22.7 % (11.5-14.5)
--- NOTE | 2019-04-22 07:13 | NUR ---
REPORT GIVEN TO TED, ALL QUESTIONS ANSWERED AND CONCERNS ADDRESSED.
--- NOTE | 2019-04-22 07:45 | NUR ---
RC'D PT RESTING IN BED INTUBATED AND SEDATED ON FENT 0.5MCG/KG/HR AND VERSED 1MG/HR. PT RESPONDS TO VERBAL STIMULI. PUPILS 4MM BILAT. GAG REFLEX NOTED. NO FACIAL DROOP NOTED. 8 ETT INTACT AND SECURED, 26CM LL. OGT INTACT AND SECURED. EENT FREE OF DRAINAGE. TRACHEA MIDLINE. ETT TO VENT, AC; TV 550, PEEP 6, FIO2 40%, RATE 16. RESP E/U. CRACKLES NOTED TO BASES. SPO2 98%, NO RESP DISTRESS NOTED. SUCTIONING/ORAL CARE PROVIDED. NSR ON TAIL DOGGER, HR 60. S1S2 AUSC. NO S/S OF CP. WEAK PALP PULSES TO BUE/BLE, EDEMA NOTED TO BUE/BLE, ELEVATED. CAP REFILL <3. SKIN WARM TO TOUCH AND CONSISTENT WITH ETHNICITY. GENERALIZED WEAKNESS, BEDREST. BUE SOFT RESTRAINTS, SKIN/CAP REFILL WNL. VITAL AF @40 WITH FWF 100 Q4H. NO RESIDUAL NOTED. ABDOMEN DISTENDED. ACTIVE BS. NO BM NOTED. F/C WITH OLGA URINE DRAINING TO GRAVITY, SECURED IN PLACE. NO PENILE DISCHARGE OR SCROTAL EDEMA NOTED. SKIN W/D/I. BED IN LOW POSITION. CALL LIGHT IN REACH. WILL CONT TO MONITOR
--- NOTE | 2019-04-22 08:03 | NUR ---
PEEP DECREASED TO [address] MANCINI. WILL MONITOR.
--- NOTE | 2019-04-22 08:03 | NUR ---
DR MANCINI, LEG ASSEMBLER AND PRIMARY RN PRESENT AT BEDSIDE. DR UPDATED ON PTS CURRENT STATUS. ALL QUESTIONS AND CONCERNS ADDRESSED. PER DR MANCINI, TURN OFF SEDATION AT THIS TIME FOR CPAP TRIAL. SEDATION TURNED OFF. PT CURRENTLY ON PCV-AC; PEEP 5, RATE 16. FIO2 35%. SPO2 99%, NO RESP DISTRESS NOTED AT THIS TIME. WILL CONT TO MONITOR
--- NOTE | 2019-04-22 08:06 | NUR ---
RT PRESENT AT BEDSIDE.
--- NOTE | 2019-04-22 08:34 | NUR ---
RT PRESENT AT BEDSIDE.
[2019-04-22 08:46] LABS: rbc morphology (normal/abnorm) ABNORMAL (NORMAL)
--- NOTE | 2019-04-22 09:10 | NUR ---
PT PLACED ON CPAP 03/[address] MANCINI. WITHIN MINUTES SATURATION DOWN TO 76%. HR UP TO 140. PT IN DISTRESS AND AGITATED. PT PLACED BACK ON AC. HR DOWN TO 120, SATURATION BACK TO 97%. WILL MONITOR. NURSE AT BEDSIDE AND AWARE.
--- NOTE | 2019-04-22 09:25 | NUR ---
PT TRANSTIONED TO CPAP. HR INCREASED TO 130'S-140'S. RESP RATE INCREASING, O2 SAT DECREASING. PT ANXIOUS AND NOT TOLERATING AT THIS TIME. RT TRANSITIONED BACK TO PRESSURE CONTROL AT THIS TIME. O2 SAT 100%, PT RESTINMG COMFORTABLE. WILL CONT TO MONITOR
--- NOTE | 2019-04-22 12:46 | NUR ---
PT HAD SOFT BROWN BM AT THIS TIME. PT CLEANED AND REPOSITIONED AT THIS TIME. CHUX AND LINEN CHANGED. WILL CONT TO MONITOR
--- NOTE | 2019-04-22 14:50 | NUR ---
PT HAD LOOSE BROWN BM. PT CLEANED AND REPOSITIONED. CHUX AND LINEN CHANGED AT THIS TIME. WILL CONT TO MONITOR
--- NOTE | 2019-04-22 15:10 | NUR ---
PT PLACED ON CPAP 03/09 AT THIS TIME. PT TOLERATING WELL. SATURATION 94% HR 94 RR 26. FAMILY AT BEDSIDE. RN AWARE. WILL MONITOR.
--- NOTE | 2019-04-22 15:17 | NUR ---
RT PRESENT AT BEDSIDE FOR CPAP TRIAL. FAMILY PRESENT AT BEDSIDE.
--- NOTE | 2019-04-22 15:54 | NUR ---
DR ARAYA SAYED UPDATED ON PT CURRENT STATUS. ALL QUESTIONS AND CONCERNS ADDRESSED. NO NEW ORDERS AT THIS TIME
--- NOTE | 2019-04-22 17:48 | NUR ---
PT CLEANED AND REPOSITIONED. KUHN CARE AND ORAL CARE PROVIDED. LINEN AND CHUX CHANGED. WILL CONTINUE TO MONITOR
--- NOTE | 2019-04-22 17:50 | NUR ---
PT PLACED BACK ON AC MODE AT THIS TIME. PT TOLERATED CPAP FROM [phone]. RN AWARE.
--- NOTE | 2019-04-22 17:51 | NUR ---
PT TRANSITIONED TO VCV-AC AT THIS TIME FROM CPAP. RT PRESENT AT BEDSIDE. WILL CONT TO MONITOR
--- NOTE | 2019-04-22 18:50 | NUR ---
PT HAD LOOSE BROWN BM. PT CLEANED AND REPOSITIONED. CHUX AND LINEN CHANGED AT THIS TIME. WILL CONT TO MONITOR
--- NOTE | 2019-04-22 19:01 | NUR ---
RECIEVED REPORT FROM JENIFFER MCCAULEY. NURSING UPDATES. POC DISCUSSED. SEE SHIFT ASSESSMENT FOR ASSESSMENT.
--- NOTE | 2019-04-22 19:30 | NUR ---
PT ENDORSED TO PROFESSOR OF PSYCHIATRY JENIFFER MOODY. ALL QUESTIONS AND CONCERNS ADDRESSED
--- NOTE | 2019-04-22 20:00 | NUR ---
PT W/ AGITATION. CALMING MEASURES IN PLACE W/ NO AVIAL. TITRATED VERSED FROM 0.5MG/HR TO 2MG/HR. PT RESTING CALMLY IN BED. WILL CONT TO MONITOR.
--- NOTE | 2019-04-22 20:00 | NUR ---
PT W/ LIQUID BROWN BM ESTIMATED @ 500ML. NO S/S OF STRAINING OR DISTRESS. PT LINENS CHANGED, GOWN, AND PT CLEANED.
--- NOTE | 2019-04-22 21:00 | NUR ---
NOTIFIED JAYDON BOSS PER PT DESATURATOIN. INCREASED FIO2 TO 45%. PT TOLERATED WELL. WILL CONT TO MONITOR.
--- NOTE | 2019-04-22 22:43 | NUR ---
PT W/ AGITATION. CALMING MEASURES IN PLACE W/ NO AVIAL. TITRATED VERSED FROM 2MG/HR TO 4MG/HR. TITRATED FENT FROM 0.5MCG/KG/HR TO 1.5MCG/KG/HR PER PT AGITATION AND RESTLESSNESS. PT RESTING CALMLY IN BED. WILL CONT TO MONITOR.
--- NOTE | 2019-04-22 23:23 | NUR ---
NOTIFIED JAYDON BOSS PER PT DESATURATOIN. INCREASED FIO2 TO 60%. PT TOLERATED WELL. WILL CONT TO MONITOR.
--- NOTE | 2019-04-22 23:39 | NUR ---
DR MAGAÑA @ BEDSIDE. NURSING UPDATES POC DISCUSSED. NO NEW ORDERS @ THIS TIME.
[2019-04-23] VITALS (13 sets, daily range): BP systolic 141–159; BP diastolic 76–109
--- NOTE | 2019-04-23 01:27 | NUR ---
PT RESTING CALMLY IN BED NO ACUTE CHANGES.
--- NOTE | 2019-04-23 01:38 | NUR ---
PT RT JAYDON TITRATED FIO2 FROM 70% TO 35% PER PT TOLERATING AND NEW O2 SENSOR PLACED R EAR. O2 SATS 97-98%. WILL CONT TO MONITOR.
--- NOTE | 2019-04-23 01:42 | NUR ---
NOTIFIED PER JAYDON FIO2 FROM 35% TO 30%. PT TOLERATED WELL O2 SAT 96%. NO S/S OF RESP DISTRESS. WILL CONT TO MONITOR.
--- NOTE | 2019-04-23 04:00 | NUR ---
PT CLEANED AND LINENS CHANGED. PT TOLERATED WELL. NO ACUTE CHANGES. WILL CONT TO MONITOR.
[2019-04-23 05:50] LABS: PLATELET COUNT 165 x10^3mcL (130-400)
[2019-04-23 05:53] LABS: BASOPHIL % 0 % (0-2); RED CELL DISTRIBUTION WIDTH 23.1 % (11.5-14.5)
[2019-04-23 06:00] LABS: CALCIUM 8.5 mg/dL (8.5-10.1); CARBON DIOXIDE 29.5 mmol/L (21-32); CHLORIDE SERUM 105 mmol/L (98-107); CREATININE SERUM 1.2 mg/dL (0.7-1.3); GFR1 > 60 mL/min; GLUCOSE SERUM 85 mg/dL (74-106); PHOSPHOROUS 2.4 mg/dL (2.5-4.9); POTASSIUM SERUM 3.8 mmol/L (3.5-5.1); SODIUM SERUM 143 mmol/L (136-145)
--- NOTE | 2019-04-23 06:42 | NUR ---
NO ACUTE CHANGES. WILL ENDORSE TO ONCOMING RN.
--- NOTE | 2019-04-23 08:45 | NUR ---
SCREEN FOR LOW KENNETH SCALE AT RISK CONTINUE PRESSURE ULCER PREVENTION INTERVENTIONS: -TURN AND REPOSITION PATIENT Q 2H OFFLOAD LEFT AND RIGHT HIPS -ASSESS AND MONITOR SKIN CONDITION DURING POSITION CHANGE -OFFLOAD BILATERAL HEELS BY PLACING PILLOWS UNDER CALVES AT ALL TIMES, UNLESS OTHERWISE CONTRAINDICATED -PRESSURE REDISTRIBUTION SURFACE THERAPY WITH PILLOWS/WEDGE POSITIONER -KEEP SKIN CLEAN AND DRY AT ALL TIMES.
--- NOTE | 2019-04-23 08:45 | NUR ---
SEDATION TITRATED OFF FOR CPAP TRIAL.
--- NOTE | 2019-04-23 10:04 | NUR ---
HAD SMALL SOFT GREEN/BROWN BM. CLEANED AND LINENS CHANGED.
--- NOTE | 2019-04-23 13:00 | NUR ---
RESTRAINTS REMOVED. SISTER AT BEDSIDE. PT AGREES NOT TO PULL LINES OR TUBES.
--- NOTE | 2019-04-23 15:32 | NUR ---
EXTUBATED BY ROYA LARA. PUT ON 2L NC. BREATHING E/U. NAD. TOLERATING WELL.
--- NOTE | 2019-04-23 19:30 | NUR ---
RECEIVED PT IN BED AWAKE, ALERT, ORIENTED TO PERSON AND PLACE. PT IS MENTALLY CHALLENGED. HE IS DEAF ON THE RT EAR AND BOIS FORTE ON THE LT. PT WAS EXTUBATED TODAY AT 1532. LUNG SOUNDS DIMINISHED AT THE BASES. NO SOB AT THIS TIME. ON O2 AT 2L VIA N/C. BOWEL SOUNDS ACTIVE. ABDOMEN IS DISTENDED . HE HAS NO C/O ABDL PAIN AT THIS TIME. W/ KUHN CATH DRAINING OLGA COLORED URINE. W/ IVF 1/2 NS AT 100 CC/HR VIA RTFA. PT'S SISTER AT BEDSIDE. WILL CONTINUE W/ CARE.
--- NOTE | 2019-04-23 21:00 | NUR ---
PT WANTING TO SLEEP BUT VERY ANXIOUS WHEN RT TRIED TO PUT HIM ON THE BIPAP. HELPED PT TO RELAX. SISTER AT BEDSIDE.
--- NOTE | 2019-04-23 21:08 | NUR ---
PT ASSISTED TO THE BEDSIDE COMMODE. HE HAD A SMALL LOSSE BM. HELPED PT BACK TO BED AND KEPT COMFORTABLE.
--- NOTE | 2019-04-23 21:24 | NUR ---
PT MEDICATED W/ ATIVAN 1 MG IV TO HELP HIM RELAX .
--- NOTE | 2019-04-23 22:15 | NUR ---
PT IS PLACED ON BIPAP BY RT.
--- NOTE | 2019-04-23 23:29 | NUR ---
PT ASLEEP BUT EASILY AROUSABLE. ON BIPAP W/ SETTING OF 12/6 FIO2=30%. RESP. EVEN AND UNLABORED. PT APPEARS CALM. NO C/O PAIN. KUHN CATH INTACT AND PATEMT. IVF 1/2 NS INFUSING AT 100 CC/HR VIA RTFA.
[2019-04-24] VITALS (8 sets, daily range): BP systolic 135–160; BP diastolic 91–107
--- NOTE | 2019-04-24 01:49 | NUR ---
PT ASLEEP AND EASILY AWAKENED. HE IS CALM AND W/ NO C/O DISCOMFORT.
--- NOTE | 2019-04-24 03:44 | NUR ---
PT CALM AND ASLEEP. HE IS EASILY AROUSBALE . NO NEURO CHANGES NOTED. BIPAP IN PLACE. RESP. EVEN AND UN;ABORED. HE HAS NO C/O PAIN OR DISCOMFORT.
--- NOTE | 2019-04-24 04:07 | NUR ---
PT AWAKE AND TAKEN OFF BIPAP BY RT AT THIS TIME. PT CALM AND IN STABLE CONDITION.
--- NOTE | 2019-04-24 05:04 | NUR ---
PT SLEPT AT LONG INTERAVLS. HE REMAINS ALERT AND ORIENTED TO PERSON AND PLACE. HE SLEPT W/BIPAP ON. NO RESP. DISTRESS NOTED. PT ON O2 VIA N/C AT THIS TIME. HE HAD NO C/O PAIN. W/ 1600 CC URINE OUTPUT THIS SHIFT. HAD A SAMLL BM X1. IVF 1/2 NS INFUSING WELL AT 100 CC/HR. KUHN CATH CARE DONE PER PROTOCOL. ALL NEEDS ATTENDED TO. PT'S SISTER REMAINS AT BEDSIDE.
[2019-04-24 05:12] LABS: BASOPHIL % 0.3 % (0-2); PLATELET COUNT 178 x10^3mcL (130-400)
[2019-04-24 05:15] LABS: CALCIUM 8.9 mg/dL (8.5-10.1); CARBON DIOXIDE 30.3 mmol/L (21-32); CHLORIDE SERUM 101 mmol/L (98-107); CREATININE SERUM 0.9 mg/dL (0.7-1.3); GFR1 > 60 mL/min; GLUCOSE SERUM 86 mg/dL (74-106); MAGNESIUM 2.1 mg/dL (1.8-2.4); PHOSPHOROUS 4.5 mg/dL (2.5-4.9); POTASSIUM SERUM 3.5 mmol/L (3.5-5.1); SODIUM SERUM 139 mmol/L (136-145)
[2019-04-24 05:32] LABS: RED CELL DISTRIBUTION WIDTH 22.8 % (11.5-14.5)
--- NOTE | 2019-04-24 07:26 | NUR ---
REPORT RECEIVED FROM SAMI SWIFT. ALL CARE ASSUMED AT THIS TIME. WILL CONTINUE TO MONITOR.
--- NOTE | 2019-04-24 08:50 | NUR ---
PT GIVEN PUDDING AT BEDSIDE TO ASSESS SAFETY OF SWALLOWING. PT SWALLOWED WITHOUT INCIDENT: NO COUGHING, NO FOOD REMAINING IN MOUTH, NO CHOKING NOTED. PT GIVEN AM MEDS CRUSHED IN PUDDING & WAS ABLE TO SWALLOW ELIXER MEDICATIONS WITHOUT PROBLEM. WILL CONTINUE TO MONITOR.
--- NOTE | 2019-04-24 09:54 | NUR ---
PT RESTING IN BED, AWAKE, ALERT. NO S/S DISTRESS NOTED.
--- NOTE | 2019-04-24 10:05 | NUR ---
DR. JAIME AND RESIDENTS ROUNDING AT BEDSIDE, CERTIFIED LACTATION COUNSELOR AND BEDSIDE RN PRESENT. QUESTIONS ANSWERED, UPDATES PROVIDED. DR. OTEROED TO ENTER DIET ORDER SINCE PT DEMONSTRATED HE CAN SAFELY SWALLOW, TO D/C NEUTRAPHOS SINCE HIS PHOS IS WNL (4.5), AND TO ENTER ORDER TO D/C KUHN CATHETER. WILL CARRY OUT ORDERS AND CONTINUE TO MONITOR.
--- NOTE | 2019-04-24 10:11 | NUR ---
DR. JAIME, DR. HANNON, PRIMARY RN AT BEDSIDE FOR MORNING ROUNDS. DOCTORS MADE AWARE PT DID FINE WITH BEDSIDE NURSING SWALLOW SCREEN AND REQUESTED FOR A DIET. PER DR. JAIME OK FOR PT TO RECIEVE SOFT DIET AND REMOVE KUHN. ALSO STATED PT STABLE FOR MST TRANSFER TODAY IS CLEARED BY DR. MANCINI.
--- NOTE | 2019-04-24 12:00 | NUR ---
DR. MANCINI AT BEDSIDE. QUESTIONS ANSWERED, UPDATES PROVIDED. SHE WANTED THE DECADRON TAPERED DOWN TO 2MG Q8H TO 2MG Q12H, WILL UPDATE ORDER. NO FURTHER UPDATES TO POC AT THIS TIME. PT TO TRANSFER WHEN [facility] A BED. WILL CONTINUE TO MONITOR IN THE MEANTIME.
--- NOTE | 2019-04-24 12:01 | NUR ---
Follow-up Nutrition Assessment: IC04/A MIKHAIL BASSETT FU HR Dx: Respiratory failure, dehydration PMHx: HTN, mental retardation, psychosis, deafness Labs: (04/24) BUN 19H Meds: Colace, Lopressor, NS, Valproic acid, Zofran, heparin Diet: (OGT) Vital AF 1.2 @ 10 ml/hr, goal 40 ml/hr, FWF 50 ml Q6H PO Intake: NPO Weights: (04/22) 125.6 kg, (04/24) 118.5 kg I/Os: (04/23) 5511/3100 (5621) Skin: intact Parviz: 16 Edema: trace BUE GI: Last BM: 04/23 RD Note (04/24): Patient said that he does not have any N/V at this time and is feeling hungry. Communicated using white board as patient is deaf. Patient had swallow eval done by RN and patient is tolerating regular texture diet per RN Jennifer. Per progress note (04/24), Patient was extubated yesterday at 10 AM, SaO2 94 on 3L NC. Estimated Nutritional Needs Based on adjusted body weight (82 kg) Energy: 9845-0669 kcal/day (30-35 kcal/kg for catabolic stress) Protein: 98-115 g/day (1.2-1.4 g/kg for catabolic stress) Fluid: 4074-4705 mL/day (1 mL/kcal) Nutrition Diagnosis: 1.Inadequate enteral nutrition infusion related to low TF rate as evidenced by current rate not meeting estimated calorie and protein needs. (patient extubated) Intervention: 1. Recommend Soft low sodium diet. Discussed with Dr. Emeka Cook. Monitor/Evaluate: Goal: Have pt meet at least 75% of estimated needs Monitor: PO intake, Labs, GI function F/U in 3-5 days as moderate risk 04/27-
--- NOTE | 2019-04-24 12:02 | NUR ---
1. Recommend Soft low sodium diet. Discussed with Dr. Emeka Heatoned.
--- NOTE | 2019-04-24 13:00 | NUR ---
KUHN CATHETER CLAMPED AT THIS TIME FOR BLADDER TRAINING BEFORE KUHN IS D/C'D. PT AND FAMILY AT BEDSIDE EDUCATED TO ALERT RN WHEN THE FEELING OF NEEDING TO URINATE ARISES. WILL CONTINUE TO MONITOR.
--- NOTE | 2019-04-24 14:46 | NUR ---
REPORT GIVEN TO JOSE SWIFT. PT TO BE TRANSFERRED TO 242B.
--- NOTE | 2019-04-24 15:44 | NUR ---
RECEIVED PT FROM ICU, PT BROUGHT UP IN W/C. PT A/A, ORIENTED X 2. BREATHING EQUAL/UNLABORED ON 1L/NC. KUHN FLOWING TO GRAVITY WITH YELLOW URINE. IVF RUNNING. NO REDNESS/SWELLING TO IV STIE. BED IN LOW POSITION, CALL LIGHT IN REACH, SAFETY PRECAUTIONS IN PLACE. WILL CONTINUE TO MONITOR
--- NOTE | 2019-04-24 15:48 | NUR ---
PT WAS SEEN FOR DYSPHAGIA. PT WAS ABLE TO SAFELY SWALLOW MS DIET WITH CHOPPED MEAT AND VEG WITH THIN LIQUID WITHOUT S/S OF ASPIRATION. MILD DIFFICULTY WITH MASTICATION SKILLS FOR REGULAR DIET. RECOMMENDATION MS DIET WITH CHOPPED MEAT AND VEG SMALL BITES AND SIPS ONLY 1:1 SUPERVISION.
--- NOTE | 2019-04-24 18:40 | NUR ---
PT SITTING UP IN BED A/A, BREATHING EQUAL/ UNLABORED ON 1L/NC. NO ACUTE PAIN DISTRESS. BP REMAINS 160/101 AFTER HYDRALAZINE GIVEN, NOTIFIED. IVF RUNNING AT 100ML/HR. NO REDNESS/ SWELLING TO IV SITE. KUHN CLAMPED. BED IN LOW POSITION, CALL LIGHT IN REACH, SAFETY PRECAUTIONS IN PLACE. WILL ENDORSE TO NIGHT NURSE
--- NOTE | 2019-04-24 19:25 | NUR ---
RECEIVED REPORT FROM NURSE JOSE, PT LAYING DOWN IN BED WITH FAMILY AT [facility]. PT DEAF, BUT ABLE TO READ LIPS AND READ FROM PAPER WHEN FAMILY ASKS QUESTIONS. ABLE TO FOLLOW COMMANDS AND MAKE NEEDS KNOWN. HEARING AID TO RIGHT LEFT EAR IN PLACE. ON TELE# 12 READING SR HR 82. DENIES CP/PRESSURE AT THIS TIME. PALPABLE PULSES TO ALL EXTREMETIES. EDEMA TO BUE NOTED. DIMINISHED LUNG SOUNDS TO BLL. BREATHING EVEN AND UNLABORED ON 2L NC. NO SOB NOTED. NO ACUTE RESP DISTRESS NOTED. ABD SOFT AND DISTENDED. ACTIVE BS X4 QUAD. DENIES N/V/D. LAST BM 04/23. KUHN CATH IN PLACE, CLAMPED AT THIS TIME FOR BLADDER TRAINING. GENERALIZED WEAKNESS. BEDFAST AT THIS TIME. IV TO RFA PATENT AND INTACT.SIDE FREE FROM REDNESS AND SWELLING. BED AT LOWEST SETTING. SIDE RAILS X2 UP. CALL LIGHT WITHING REACH. WILL CONT TO MONITOR.
--- NOTE | 2019-04-24 20:30 | NUR ---
PT DOES NOT HAVE NG TUBE IN PLACE. MEDS ARE ORDERED TO GIVE THROUGH NG TUBE. INFORMED DR LARIOS TO CHNAGE ROUTE. PER DR HARRIET ORELLANA TO GIVE MEDS PO AT THIS TIME. DR WILL CHANGE ROUTE LATER.
--- NOTE | 2019-04-25 00:15 | NUR ---
PT C/O 410 HEADACHE PAIN, MEDICATED WITH PRN TYLENOL PER AUG. NO ACUTE DISTRESS NOTED. WILL CONT TO MONITOR.
[2019-04-25 04:50] VITALS: BP 148/99
--- NOTE | 2019-04-25 06:54 | NUR ---
PT SLEPT AT INTERVALS THROUGHOUT THE NIGHT, BREATHIING EVEN AND UNLABORED ON 2L NC. PT KUHN UNCLAMPED ONCE DUE TO PT STATING URGE TO URINATE. PT CLAMPED AGAIN AT [address] HARRIET OLIVEIRA ORDER TO D/C HATTIE, PER WILL WAIT FOR THE MORNING TO ALEXANDRAAY ORDER. PT IN NO ACUTE DISTRESS. ALL NEEDS ASSESSED AND ATTENDED TO. BED AT LOWEST SETTING. SIDE RAILS X2 UP. CALL LIGHT WITHING REACH. WILL ENDORSE CARE TO AM NURSE.
[2019-04-25 07:02] LABS: PLATELET COUNT 157 x10^3mcL (130-400)
--- NOTE | 2019-04-25 07:18 | NUR ---
PT LYING IN BED A/A, BREATHING EQUAL/ UNLABORED ON 1L/NC. NO ACUTE PAIN/ DISTRESS. IVF RUNNING AT 100ML/HR. NO REDNESS/ SWELLING TO IV SITE. KUHN FLOWING TO GRAVITY WITH YELLOW URINE. BED IN LOW POSITON, CALL LIGHT IN REACH, SAFETY PRECAUTIONS IN PLACE. WILL CONTINUE TO MONITOR
[2019-04-25 07:37] VITALS: BP 161/110
[2019-04-25 07:38] LABS: CALCIUM 9.1 mg/dL (8.5-10.1); CARBON DIOXIDE 32.4 mmol/L (21-32); CHLORIDE SERUM 99 mmol/L (98-107); CREATININE SERUM 0.8 mg/dL (0.7-1.3); GFR1 > 60 mL/min; GLUCOSE SERUM 76 mg/dL (74-106); MAGNESIUM 1.9 mg/dL (1.8-2.4); PHOSPHOROUS 4.1 mg/dL (2.5-4.9); POTASSIUM SERUM 3.2 mmol/L (3.5-5.1); SODIUM SERUM 140 mmol/L (136-145)
[2019-04-25 08:05] LABS: BASOPHIL % 0 % (0-2)
[2019-04-25 11:42] VITALS: BP 145/99
--- NOTE | 2019-04-25 12:00 | NUR ---
PT SITTING IN BED, A/A. BREATHING EQUAL/UNLABORED ON 3L/NC. NO ACUTE PAIN/ DISTRESS. NO REDNESS/ SWELLING TO IV SITE. KUHN FLOWING TO GRAVITY. BED IN LOW POSITION, CALL LIGHT IN REACH, SAFETY PRECAUTIONS IN PLACE. FAMILY AT BED SIDE. WILL CONTINUE TO MONITOR
--- NOTE | 2019-04-25 16:00 | NUR ---
KUHN CATHETER REMOVED PER DOCTOR ORDER. PT BEKAH WELL. WILL CONTINUE TO MONITOR
[2019-04-25 16:52] VITALS: BP 148/99
--- NOTE | 2019-04-25 18:33 | NUR ---
PT SITTING UP IN BED, A/A. BREATHING EQUAL/UNLABORED ON 3L/NC. NO ACUTE PAIN DISTRESS. NO REDNESS/SWELLING TO IV SITE. BED IN LOW POSITION, CALL LIGHT IN REACH, SAFETY PRECAUTIONS IN PLACE. WILL ENDORSE TO NIGHT NURSE
--- NOTE | 2019-04-25 20:10 | NUR ---
AWAKE AND ALERT, ABLE TO MAKE NEEDS KNOWN. USES ELECTRONIC PAD TO COMMUNICATE. HEARING DEFICIT. BREATHING EVEN AND UNLABORED ON 3LPM OF O2 VIA NC. LUNG SOUNDS DIMINISHED TO BASES. SINUS RHYTHM ON TELE, HR 99/MIN. DENIES HAVING ANY PAIN, STATED HE IS COMFORTABLE AT THIS TIME. SALINE LOCK. CALL LIGHT WITHIN EASY REACH. HOB ELEVATED 40 DEG. BED IN LOWEST POSITION.
[2019-04-25 21:12] VITALS: BP 150/101
--- NOTE | 2019-04-25 22:38 | NUR ---
EYES CLOSED, BREATHING EVEN AND UNLABORED ON 3LPM OF O2 VIA NC. HOB KEPT ELEVATED 30 DEG. CALL LIGHT WITHIN EASY REACH.
--- NOTE | 2019-04-25 23:48 | NUR ---
EYES CLOSED, BREATHING EVEN AND UNLABORED ON 3LPM OF O2 VIA NC. CALL LIGHT WITHIN EASY REACH. HOB KEPT ELEVATED 35 DEG.
[2019-04-26] VITALS (7 sets, daily range): BP systolic 134–149; BP diastolic 95–109
--- NOTE | 2019-04-26 02:01 | NUR ---
EYES CLOSED, BREATHING EVEN AND UNLABORED ON 4LPM OF O2 VIA NC. O2 INCREASED TO 4LPM EARLIER BY RESP THERAPIST. HOB KEPT ELEVATED 30 DEG. CALL LIGHT WITHIN EASY REACH.
--- NOTE | 2019-04-26 06:16 | NUR ---
EYES CLOSED, EASILY AWAKENED. BREATHING EVEN AND UNLABORED ON 4LPM OF O2 VIA NC. HOB KEPT ELEVATED 30 DEG. HEARING AID TO LEFT EAR. CALL LIGHT WITHIN EASY REACH.
--- NOTE | 2019-04-26 07:13 | NUR ---
EYES CLOSED, BREATHING EVEN AND UNLABORED ON 4LPM OF O2 VIA NC. HOB ELEVATED 30 DEG. CALL LIGHT WITHIN EASY REACH. ENDORSED TO NURSE JASPREET
[2019-04-26] MEDS ORDERED: LEVOFLOXACIN500 M1 PO (07:59)
[2019-04-26] MEDS ORDERED: NIFEDIPINE30 MG PO (08:00)
[2019-04-26 08:15] LABS: BASOPHIL % 0.6 % (0-2); PLATELET COUNT 166 x10^3mcL (130-400)
--- NOTE | 2019-04-26 08:28 | NUR ---
RECIEVED REPORT FROM [facility] NURSE. PATIENT CURRENTLY SITTING UP AWAKE AND ALERT IN BED. OBSERVED EATING BREAKFRAST. PATIENT ON 4 LITERS HUMIDIFIED OXYGEN VIA NASAL CANNULA. PATIENT IS HARD OF HEARING AND ON FALL PRECAUTIONS. IV IS CURRENTLY SALINE LOCKED TO THE RIGHT FOREARM. PATIENT APPEARS CALM. LUNG AUSCULTATION REVEALED DIMINISHED LUNG SOUNDS AT THE BASES. SAFETY PRECAUTIONS IN PLACE. CALL LIGHT WITHIN REACH. WILL CONTINUE TO MONITOR.
[2019-04-26 09:09] LABS: CALCIUM 9.1 mg/dL (8.5-10.1); CARBON DIOXIDE 32.2 mmol/L (21-32); CHLORIDE SERUM 102 mmol/L (98-107); GFR1 > 60 mL/min; GLUCOSE SERUM 103 mg/dL (74-106); POTASSIUM SERUM 3.7 mmol/L (3.5-5.1); SODIUM SERUM 141 mmol/L (136-145)
--- NOTE | 2019-04-26 18:50 | NUR ---
PATIENT CURRENTLY STABLE SITTING UPRIGHT IN BED. PATIENT REMAINS ON 4 LITER HUMIDIFIED OXYGEN. PATIENT DOES NOT REPORT OR EXHIBIT SIGNS OF PAIN AT THIS TIME. LUNG SOUNDS DIMINISHED AT BASES. PATIENT ON RT PROTOCOL AND RECIEVED BREATHING TREATMENT. SAFETY PRECAUTIONS IN PLACE. CALL LIGHT WITHIN REACH. WILL ENDORSE CARE TO NIGHT NURSE.
--- NOTE | 2019-04-26 20:00 | NUR ---
PT A/A/O X4. DENIES DIZZINESS AND HEADACHE. BREATH SOUNDS CLEAR. BREATHING EVEN AND UNLABORED ON ROOM AIR, SPO2 91%. DENIES SOB AND DIFFICULTY BREATHING. DENIES CHEST PAIN AND PRESSURE. BOWEL SOUNDS ACTIVE. ABDOMEN DISTENDED AND HARD. NO C/O N/V AND ABD PAIN. IV INTACT ON THE RIGHT FOREARM. MADE PT COMFORTABLE. PLACED CALL LIGHT WITH IN REACH. WILL CONTINUE TO MONITOR.
--- NOTE | 2019-04-26 22:18 | NUR ---
PATIENTS LOWEST BLOOD PRESSURE 148/102 AFTER [address] BLACKWELL NOTIFIED. ORDERED HYDRALAZINE PO. GAVE PT HYDRALAZINE PO. PT TOLERATED IT WELL. WILL CONTINUE TO MONITOR.
--- NOTE | 2019-04-27 02:51 | NUR ---
PT REFUSE BI PAP PER RT. SPO2 86% ON 4L NC, AND BP 141/103, HR 109. PT RESTING WITH EYES CLOSED. DR. BLACKWELL NOTIFIED. NO NEW ORDERS GIVEN. WILL CONTINUE TO MONITOR.
--- NOTE | 2019-04-27 03:14 | NUR ---
PT O2 INCREASED TO 5L NC. SPO2 90%. PT TOLERATING IT WELL. WILL CONTINUE TO MONITOR.
[2019-04-27 04:06] VITALS: BP 151/113
--- NOTE | 2019-04-27 05:44 | NUR ---
PATIENTS BP IS 151/113, HR 110. GAVE PT SCHEDULED 0900 ADALAT NOW. PT TOLERATED IT WELL. DR. BLACKWELL NOTIFIED. WILL CONTINUE TO MONITOR.
[2019-04-27 06:26] VITALS: BP 147/104
--- NOTE | 2019-04-27 06:29 | NUR ---
BLOOD PRESSURE 147/104, MAP 118, HR 108 AFTER ADALAT PO. WILL ENDORSE TO THE AM NURSE ACCORDINGLY.
--- NOTE | 2019-04-27 07:19 | NUR ---
RECIEVED REPORT FROM [facility] NURSE. PATIENT OBSERVED SLEEPING IN BED. IV TO RIGHT FOREARM RUNNING NS TKO AT 10/HOUR. PER [facility] NURSE, PATIENT REFUSED CPAP AT NIGHT. PATIENT CURRENTLY ON 5 LITER HUMIDIFIED OXYGEN VIA NASAL CANNULA. SAFETY PRECAUTIONS IN PLACE. CALL LIGHT WITHIN REACH. WILL CONTINUE TO MONITOR.
[2019-04-27 08:19] VITALS: BP 155/100
[2019-04-27 12:07] VITALS: BP 134/95
--- NOTE | 2019-04-27 12:15 | NUR ---
JOSE ADMISSION COORDINATOR FROM [facility] CALLED REGARDING THE TRANSFER. TOLD HER WILL FAX THE ORDER FOR THE O2 AND CPAP AND SHE'LL MAKE THE ARRANGEMENT FOR THE O2 AND CPAP AND SHE'LL CALL THE [facility] ONCE IT'S BEING DELIVERED. 1325 JOSE CALLED AND SHE WANTS THE SETTING OF THE CPAP AND FAX HER THE ORDER.TOLD JOSE THAT THE FAMILY WANTS PATIENT BE TRANSFER BEFORE 1700 SO THE FAMILY CAN ONLY PAY $68.00 PRE ARRANGE. SHE STATED SHE'LL DO IT SOON SHE CAN. 1415 [facility] CALLED THAT THE EQUIPMENT IS DELIVERED AND ROOM NO.41 AND . 1525 CALLED [facility] AND SPOKE W/ YVETTE AND ACTIVATE THE WILL CALL AND PATIENT BE FLORAL DEPARTMENT SPECIALIST AT 1630 BUT [facility] UNABLE TO PICK HIM UP AT THAT TIME NOT TILL BETWEEN [phone]. ASKED YVETTE IF THE FAMILY STILL HAVE TO PAY THE $68.00 AFTER THE 1700 AND HE STATED THAT STILL AMOUNT. THERE'S A CHANGE IN THE RATE AFTER 1900. ASKED YVETTE HOW THE FAMILY PAY THE TRANSPORTATION AND HE STATED THAT EITHER FONTAINE OR CREDIT CARD.IF CREDIT CARD THEY HAVE TO CALL AND PAY BEFORE TRANSFERRING. CALLED TO DEBBI GRACE OF [facility] AND INFORMED OF THE TIME PATIENT WILL BE FLORAL DEPARTMENT SPECIALIST.FAMILY MOTHER AND SISTER OF THE PATIENT CAME AND INFORMED THE TIME PATIENT WILL BE FLORAL DEPARTMENT SPECIALIST AND HOW THEY WILL PAY THE TRANSPORTATION AND THEY ALL AGREE WITH ARRANGMENT. CALLED DEBBI WEEMS OF [facility] THE TIME PAITENT WILL BE FLORAL DEPARTMENT SPECIALIST. FAMILY CAME THE MOTHER AND SISTER OF THE PATIENT AND INFORMED OF THE TIME THE PATIENT TRELLIS BETWEEN 1700 AND 1800.
--- NOTE | 2019-04-27 14:10 | NUR ---
PATIENT CURRENTLY OBSERVED SLEEPING IN ROOM. CURRENTLY ON NC AT 4 L HUMIDIFIED OXYGEN. IV TO RIGHT FOREARM PATENT AND INTACT. [facility] AFTER APPROPRIATE ARRANGEMENTS FOR OXYGEN DELIVERY HAVE BEEN MADE. CHICKEN TENDER AND MOTHER AWARE. WILL CONTINUE TO MONITOR.
--- NOTE | 2019-04-27 15:53 | NUR ---
PATIENT CURRENTLY RECIEVING BREATHING TREATMENT WITH RESPIRATORY THERAPIST. BED IN LOW POSITION. NC AT 4 L SATURATING AT 91%. WILL CONTINUE TO MONITOR.
== END 2019-04-27 17:45 | DRG 207 ==
LOC: ED 20:49 → IC 04-17 01:22 → DU 04-24 15:25
PROVIDERS: Emergency Medicine; General Practice; ADMIT Internal Medicine
PROC: 5A1955Z Respiratory Ventilation, Greater than 96 Consecutive Hours (ICD-10-PCS; principal; 2019-04-17)
PROC: 0BH17EZ Insertion of Endotracheal Airway into Trachea, Via Natural or Artificial Opening (ICD-10-PCS; 2019-04-17)
DX: J96.01 Acute respiratory failure with hypoxia (principal); J69.0 Pneumonitis due to inhalation of food and vomit; E87.2 Acidosis; E66.2 Morbid (severe) obesity with alveolar hypoventilation; J96.22 Acute and chronic respiratory failure with hypercapnia; D45 Polycythemia vera; H91.3 Deaf nonspeaking, not elsewhere classified; F79 Unspecified intellectual disabilities; R73.9 Hyperglycemia, unspecified; I10 Essential (primary) hypertension; Z68.35 Body mass index [BMI] 35.0-35.9, adult
CPT/HCPCS: 31500; 36600; 83880; 84439; 85378; 87804; 92526-GN; 92610-GN; 97116-GP; 97530-GP; A4628; C9113; G0378; J0360; J0692; J1100; J1200; J1644; J2060; J2250; J2405; J2543; J2704; J2930; J3010; J3370; J3480; J3490; J7030; J7050; J7620; Q0092